=== PATIENT | female | born 1980 | race African-American/Black ===

== ENCOUNTER 2023-06-03 18:40 | Emergency (ER) | payer MEDICAID ==
[~2023-06-03] VITALS: Ht 162.6 cm; Wt 83.0 kg
[2023-06-03 18:55] VITALS: BP 117/70; TEMP 98.8; O2SAT 99
[2023-06-03 19:14] VITALS: PULSE 100; RESP 18
== END 2023-06-03 21:36 | disposition left against medical advice (07) ==
LOC: ER 18:40
DX: M79.89 Other specified soft tissue disorders (principal); F41.9 Anxiety disorder, unspecified; F31.9 Bipolar disorder, unspecified; Z98.890 Other specified postprocedural states
CPT/HCPCS: 99281